=== PATIENT | female | born 1985 | race Caucasian/White ===

== ENCOUNTER → 2018-02-20 | Outpatient (CLI) | payer MEDICAID, OTHER ==
[~2018-02-20] MED LIST: ALBU1AER INH; BENZ100 PO; DOXY100T PO; Z.0.NO CURRENT MEDS
== END ==
LOC: HPND 07:46
PROVIDERS: ATTEND Obstetrics & Gynecology
DX: O99.212 Obesity complicating pregnancy, second trimester (principal); E66.01 Morbid (severe) obesity due to excess calories; Z68.41 Body mass index [BMI] 40.0-44.9, adult; O35.1XX0 Maternal care for (suspected) chromosomal abnormality in fetus, not applicable or unspecified; O09.32 Supervision of pregnancy with insufficient antenatal care, second trimester; O44.22 Partial placenta previa NOS or without hemorrhage, second trimester
CPT/HCPCS: 76811

== ENCOUNTER → 2018-04-04 | Outpatient (CLI) | payer MEDICAID | LOC: HPND 12:45 | PROVIDERS: ATTEND Obstetrics & Gynecology | DX: O99.212 Obesity complicating pregnancy, second trimester (principal); E66.01 Morbid (severe) obesity due to excess calories; Z68.41 Body mass index [BMI] 40.0-44.9, adult; O35.8XX0 Maternal care for other (suspected) fetal abnormality and damage, not applicable or unspecified | CPT/HCPCS: 76816 ==

== ENCOUNTER 2018-07-24 15:59 | Inpatient (IN) ==
[2018-07-24] MEDS ORDERED: fentaNYL Citrate Inj 100 MCG/2 ML Ampul IV.PUSH PRN ×2 (17:19)
[2018-07-24] MEDS ORDERED: Sod Chloride 0.9% Inj 1,000 ML IV.CONT PRN (17:19)
[2018-07-24] MEDS ORDERED: Oxytocin 30 Units/500ml Premix 30 UNITS/500 ML BAG IV.SIG ONE (17:19)
[2018-07-24] MEDS ORDERED: Naloxone Inj 0.4 MG/ML Vial IV.PUSH PRN (17:19)
[2018-07-24] MEDS ORDERED: Sodium Chlor 0.9% Inj 500 ML IV.SIG PRN (17:19)
--- NOTE | 2018-07-24 17:25 | P.HPOB ---
History of Present Illness Primary Care Physician: NOT REQUIRED History of Present Illness: Patient is a 33-year-old G 3 P 2 at 40/4 who presents today for induction of labor. Multiple ECF is seen by OB diagnostics, patient also post dates. Recommended delivery. She states she has had normal movement. Denies nausea, vomiting, fever, chills, abdominal pain, shortness of breath, changes in vision, headache, lightheadedness, dizziness, dysuria, hematuria, frequency, change in urine color/smell, change in bowel habits, large gushes of fluid. Notes some minor whitish discharge, normal for . No bloody discharge, abnormally colored or malodorous discharge. No other complaints today. History Medical: Denies Surgical cholecystectomy 2009 OB: 2 previous late term deliveries, no other complications, denies Occasions during the spring C Family Mother: Denies medical problems Father: Hypertension Social EtOH: Denies Tobacco: Denies Drugs: Denies - Inpatient Certification I certify that the inpatient services were ordered in accordance with Medicare regulations governing the order. This includes certification that hospital inpatient services are reasonable and necessary and in the case of services not specified as inpatient-only under 42 CFR 419.22(n), that they are appropriately provided as inpatient services in accordance to with the 2-midnight benchmark under 43 CFR 412.3(e) Review of Systems Constitutional: Denies chills, Denies fever(s) Eyes: Denies blind spots, Denies blurry vision, Denies change in vision, Denies itchy eyes Ears, Nose, Mouth, and Throat: Denies bleeding gums, Denies sore throat Cardiovascular: Denies chest pain, Denies shortness of breath Respiratory: Denies cough, Denies snoring, Denies stridor, Denies wheezing Gastrointestinal: Reports cramping, Denies constipation, Denies nausea, Denies vomiting Genitourinary: Denies abnormal vaginal bleeding, Denies pelvic pain, Denies urinary urgency, Denies vaginal odor Musculoskeletal: Denies numbness, Denies stiffness, Denies tingling Skin/Breast: Denies redness, Denies rash Neurologic: Denies abnormal movements, Denies confusion, Denies dizziness, Denies numbness, Denies convulsions Psychiatric: Denies anxiety, Denies confusion, Denies depression Endocrine: Denies cold intolerance, Denies excessive sweating, Denies flushing Hematologic/Lymphatic: Denies easy bleeding, Denies easy bruising PMFSH - History History Provided By: Patient, Family Member - Medical History Medical History: Medical History (Last Reviewed 05/30/18 @ 22:29 by Ambika Barone) Patient denies medical problems - Surgical History Surgical History: Surgical History (Last Updated 05/30/18 @ 21:37 by Scotty Hayden RN) Hx of cholecystectomy - Tobacco History Smoking Status: Never smoker - Alcohol History How Often Do You Have a Drink Containing Alcohol: Never - Substance Use History Substance History: No History of Abuse - Immunization History Hx Influenza Vaccine This Season: No Medications and Allergies Allergies Allergy/AdvReac Type Severity Reaction Status Date / Time penicillin G Allergy Severe Hives Verified 05/30/18 21:35 Home Medications Medication Instructions Recorded Confirmed Type [id number] fumarate-FA 1 tab PO DAILY 07/24/18 07/24/18 History [] Exam Vital signs: Vital Signs 07/24/18 16:15 Temperature 98.9 F Pulse Rate 125 H Respiratory Rate 18 Blood Pressure 128/82 Intake & Output 07/23/18 07/24/18 07/24/18 18:59 06:59 18:59 Weight 104 kg Other: Weight On Admission 104 kg Narrative: GENERAL: Well-nourished, well-developed patient. SKIN: Warm and dry. HEAD: Normocephalic and atraumatic. EYES: No scleral icterus. No injection or drainage. ENT: No nasal drainage noted. Mucous membranes pink. Airway patent. NECK: Supple, trachea midline. No JVD. CARDIOVASCULAR: Regular rate and rhythm without murmurs, gallops, or rubs. RESPIRATORY: Breath sounds equal bilaterally. No accessory muscle use. ABDOMEN/GI: Abdomen soft, non-tender, bowel sounds present, no rebound, no guarding GENITOURINARY: Cervix: Posterior Dilatation: 3 Effacement: 70 Station: -2 Membranes: Intact Uterine Contractions: Rare FHT's: Category: 1 Baseline: 140 Reactive: Yes Variability: Moderate Decels: None EXTREMITIES: No cyanosis or edema. BACK: Nontender without obvious deformity. No CVA tenderness. NEUROLOGICAL: Awake and alert. Motor and sensory grossly within normal limits. Five out of 5 muscle strength in all muscle groups. Normal speech. Caprini VTE Risk Assessment Caprini VTE Risk Assessment: No/Low Risk (score <= 1) Caprini Risk Assessment Model: Point Value = 1 Point Value = 2 Point Value = 3 Point Value = 5 Age 41-60 Minor surgery BMI > 25 kg/m2 Swollen legs Varicose veins or History of unexplained or recurrent spontaneous Oral contraceptives or hormone replacement Sepsis (< 1 month) Serious lung disease, including pneumonia (< 1 month) Abnormal pulmonary function Acute myocardial infarction Congestive heart failure (< 1 month) History of inflammatory bowel disease Medical patient at bed rest Age 61-74 Arthroscopic surgery Major open surgery (> 45 min) Laparoscopic surgery (> 45 min) Malignancy Confined to bed (> 72 hours) Immobilizing plaster cast Central venous access Age >= 75 History of VTE Family history of VTE Factor V Leiden Prothrombin [id number] Lupus anticoagulant Anticardiolipin antibodies Elevated serum homocysteine Heparin-induced thrombocytopenia Other congenital or acquired thrombophilia Stroke (< 1 month) Elective arthroplasty Hip, pelvis, or leg fracture Acute spinal cord injury (< 1 month) Prophylaxis Regimen: Total Risk Factor Score Risk Level Prophylaxis Regimen 0-1 Low Early ambulation 2 Moderate Order ONE of the following: *Sequential Compression Device (SCD) *Heparin 5000 units SQ BID 3-4 Higher Order ONE of the following medications: *Heparin 5000 units SQ TID *Enoxaparin/Lovenox 40 mg SQ daily (WT < 150 kg, CrCl > 30 mL/min) *Enoxaparin/Lovenox 30 mg SQ daily (WT < 150 kg, CrCl > 10-29 mL/min) *Enoxaparin/Lovenox 30 mg SQ BID (WT < 150 kg, CrCl > 30 mL/min) AND/OR *Sequential Compression Device (SCD) 5 or more Highest Order ONE of the following medications: *Heparin 5000 units SQ TID (Preferred with Epidurals) *Enoxaparin/Lovenox 40 mg SQ daily (WT < 150 kg, CrCl > 30 mL/min) *Enoxaparin/Lovenox 30 mg SQ daily (WT < 150 kg, CrCl > 10-29 mL/min) *Enoxaparin/Lovenox 30 mg SQ BID (WT < 150 kg, CrCl > 30 mL/min) AND *Sequential Compression Device (SCD) Assessment and Plan - Diagnosis (1) 40 weeks gestation of Code(s): Z3A.40 - 40 weeks gestation of Status: Acute (2) cardiac echogenic focus Code(s): O35.8XX0 - Maternal care for other (suspected) abnormality and damage, not applicable or unspecified Status: Acute (3) Post-dates Code(s): O48.0 - Post-term Status: Acute - Plan 33-year-old at 40/4 presenting today for induction of labor due to echogenic foci and post dates. -Admission for induction of labor -Pitocin 11/09/29 -FHT category 1, reassuring -Expectant management -GBS negative D/W Dr. Palomares
[2018-07-24] MEDS ORDERED: Citric Acid/Sodium Citrate Liq 30 ML UDC PO SCH (17:30)
[2018-07-24 17:50] LABS: Baso % (Auto) 0.4 % (0.0-2.0); Eos % (Auto) 0.2 % (0.0-4.0); Hematocrit 28.9 % (35.0-46.0); Hemoglobin 9.7 gm/dL (11.6-15.3); Lymph # (Auto) 1.4 th/mm3 (1.0-4.8); Lymph % (Auto) 12.4 % (9.0-44.0); Mean Corpuscular HGB Conc 33.7 % (32.0-36.0); Mean Corpuscular Hemoglobin 29.1 pg (27.0-34.0); Mean Corpuscular Volume 86.5 fL (80.0-100.0); Mean Platelet Volume 8.8 fL (7.0-11.0); Mono # (Auto) 0.5 th/mm3 (0.0-0.9); Mono % (Auto) 4.8 % (0.0-8.0); Neut # (Auto) 8.9 th/mm3 (1.8-7.7); Neut % (Auto) 82.2 % (16.0-70.0); Platelet Count 217 th/mm3 (150-450); Red Blood Count 3.34 mil/mm3 (4.00-5.30); Red Cell Distribution Width 17.4 % (11.6-17.2); White Blood Count 10.9 th/mm3 (4.0-11.0)
[2018-07-24] MEDS ORDERED: Oxytocin 30 Units/500ml Premix 30 UNITS/500 ML BAG IV.CONT PRN (17:52)
[2018-07-24 17:59] LABS: Amphetamine Urine With Conf Neg (Neg); Benzodiazepine Urine With Conf Neg (Neg)
[2018-07-24 18:03] LABS: Bacteria,Urine Rare /hpf; Bilirubin,Urine Negative (Negative); Clarity,Urine Hazy (Clear); Color,Urine Yellow (Yellw/Straw); Glucose,Urine (UA) Negative (Negative); Leukocyte Esterase,Urine Small (Negative); Mucus,Urine Few /lpf (Occasional); Nitrite,Urine Negative (Negative); Specific Gravity,Urine 1.009 (1.002-1.035); Squamous Epithelial Cell,Urine 10 /hpf (0-5)
[2018-07-24] MEDS ORDERED: Acetaminophen 325 MG Tablet PO ONE (19:45)
--- NOTE | 2018-07-24 20:22 | P.OBLABOR ---
Subjective Interval history: Patient seen. She is considering an epidural. No complaints at this time. Objective Vital Signs: Vital Signs - 8 hr 07/24/18 16:15 07/24/18 18:04 07/24/18 18:05 Temperature 98.9 F Pulse Rate 125 H 104 H Respiratory Rate 18 18 Blood Pressure 128/82 107/65 07/24/18 19:19 07/24/18 19:20 Temperature 97.7 F Pulse Rate 101 H Respiratory Rate 16 Blood Pressure 111/73 Objective: Pelvic Exam: Cervix: midline Dilatation: 3cm Effacement: 70 Station: -2 Presentation: vertex Membranes: intact Uterine Contractions: q2-4m FHT's: Category: 1 Baseline: 130s-140s Reactive: yes Variability: moderate Decels: none Assessment and Plan - Diagnosis (1) 40 weeks gestation of Code(s): Z3A.40 - 40 weeks gestation of Status: Acute (2) cardiac echogenic focus Code(s): O35.8XX0 - Maternal care for other (suspected) abnormality and damage, not applicable or unspecified Status: Acute (3) Post-dates Code(s): O48.0 - Post-term Status: Acute - Plan 33-year-old at 40/4 presenting today for induction of labor due to echogenic foci and post dates. -Admission for induction of labor -Pitocin 11/09/29 -FHT category 1, reassuring -Cervix /-2 -Expectant management -GBS negative D/W Dr. Palomares
[2018-07-24] MEDS ORDERED: Lidocaine 1% Inj 50 ML Vial ONE (20:29)
[2018-07-24] MEDS ORDERED: fentaNYL 2MCG-Bupiv 0.125% Epi 150 ML EPIDURAL ONE (20:35)
[2018-07-24] MEDS ORDERED: Lidocaine PF 1% Inj 5 ML Vial ONE (20:43)
[2018-07-24] MEDS ORDERED: Lidocaaine 1.5%/Epinephrine 1:200,000 PF Inj 5 ML Amp ONE (20:43)
[2018-07-24] MEDS ORDERED: fentaNYL Citrate Inj 100 MCG/2 ML Ampul EPIDURAL ONE (21:29)
[2018-07-24] MEDS ORDERED: fentaNYL 2MCG-Bupiv 0.125% Epi 150 ML EPIDURAL PRN (21:29)
--- NOTE | 2018-07-24 22:36 | P.OBLABOR ---
Subjective Interval history: Ms Norton was re-examined. She is feeling much more comfortable after having the epidural placed. She does report diffuse pruritus. Objective Vital Signs: Vital Signs - 8 hr 07/24/18 16:15 07/24/18 18:04 07/24/18 18:05 Temperature 98.9 F Pulse Rate 125 H 104 H Respiratory Rate 18 18 Blood Pressure 128/82 107/65 07/24/18 19:19 07/24/18 19:20 07/24/18 21:05 Temperature 97.7 F Pulse Rate 101 H 117 H Respiratory Rate 16 20 Blood Pressure 111/73 119/66 07/24/18 21:15 07/24/18 21:20 07/24/18 21:30 Temperature Pulse Rate 108 H 105 H 116 H Respiratory Rate Blood Pressure 118/83 115/61 99/64 L 07/24/18 21:40 07/24/18 21:42 07/24/18 21:45 Temperature Pulse Rate 98 H 94 H 92 H Respiratory Rate 16 Blood Pressure 97/50 L 108/54 L 07/24/18 22:01 07/24/18 22:14 07/24/18 22:15 Temperature Pulse Rate 95 H 106 H 112 H Respiratory Rate 18 Blood Pressure 84/43 L 84/58 L 101/62 Objective: Pelvic Exam: Cervix: Posterior Dilatation: 4 Effacement: 70 Station: -2 Presentation: Vertex Membranes: Ruptured Uterine Contractions: Consistent, every 3-5 minutes FHT's: Category: 1 Baseline: 150 Reactive: Yes Variability: Moderate Decels: None Artificial Rupture of Membrane: Yes (Clear fluid) Assessment and Plan - Diagnosis (1) 40 weeks gestation of Code(s): Z3A.40 - 40 weeks gestation of Status: Acute (2) cardiac echogenic focus Code(s): O35.8XX0 - Maternal care for other (suspected) abnormality and damage, not applicable or unspecified Status: Acute (3) Post-dates Code(s): O48.0 - Post-term Status: Acute - Plan 33-year-old at 40/4 presenting today for induction of labor due to echogenic foci and post dates. -Admission for induction of labor -Pitocin 11/09/29 -FHT category 1, reassuring -Cervix /-2 -Expectant management -GBS negative -AROM performed by Dr. Sargent -Hydroxyzine 25 mg IM for pruritus D/W Dr. Palomares
[2018-07-25] MEDS ORDERED: Acetaminophen 325 MG Tablet PO PRN (03:36)
[2018-07-25] MEDS ORDERED: Oxytocin 30 Units/500ml Premix 30 UNITS/500 ML BAG IV.CONT PRN (03:36)
[2018-07-25] MEDS ORDERED: Zolpidem Tartrate 5 MG Tablet PO PRN (03:36)
[2018-07-25] MEDS ORDERED: Naloxone Inj 0.4 MG/ML Vial IV.PUSH PRN (03:36)
[2018-07-25] MEDS ORDERED: Bisacodyl 10 MG Supp RECTAL PRN (03:36)
--- NOTE | 2018-07-25 03:39 | P.OBDELI ---
Weeks Gestation: 40 Artificial Rupture of Membrane: Yes Anesthesia: Epidural Episiotomy: none Vaginal Delivery: Normal Presentation: Occiput anterior Nuchal Cord: None Delayed Cord Clamping (45 sec): Yes Laceration: 2 deg Repair: Chromic running Estimated blood loss (mL): 150 : Male Male A Delivery Date: 07/25/18 Delivery Time: 03:11 score (1 min): 9 score (5 min): 9
[2018-07-25] MEDS: Benzocaine 20% Top Spray 60 ML Can TOPICAL PRN (08:10)
[2018-07-25] MEDS: Senna/Docusate Sodium 8.6/50 MG Tablet PO SCH ×2 (08:10→21:16)
[2018-07-25] MEDS: Witch Hazel 50%/Glyderin 12.5% 40 Pad Jar RECTAL PRN (08:11)
[2018-07-25] MEDS ORDERED: Diphtheria/Tetanus/Pertussis Vaccine Inj 0.5 ML Syringe IM ONE (16:00)
[2018-07-25] MEDS ORDERED: Measles/Mumps/Rubella Vaccine Inj 0.5 ML Vial SQ ONE (16:00)
[2018-07-25 22:14] VITALS: RESP 18
[2018-07-26 07:20] VITALS: BP 94/59; PULSE 84; TEMP 97.7
[2018-07-26] MEDS: Senna/Docusate Sodium 8.6/50 MG Tablet PO SCH (08:53)
--- NOTE | 2018-07-26 10:52 | P.PNOB ---
Subjective Post day: 2 Interval history: Pt seen and examined this morning bedside. No N/V. Ambulating and voiding without difficulty. Denies any CP/SOB/dizzyness. pain well-controlled on current medications. No calf tenderness. Passing gas. Objective Vital Signs/I&O: Vital Signs 07/25/18 21:00 07/26/18 07:00 Temperature 98.2 F 97.7 F Pulse Rate 70 84 Respiratory Rate 18 18 Blood Pressure 104/70 94/59 L Result Diagrams: 07/24/18 16:30 Objective Remarks: GENERAL: Well-nourished, well-developed patient. CARDIOVASCULAR: Regular rate and rhythm without murmurs, gallops, or rubs. RESPIRATORY: Breath sounds equal bilaterally. No accessory muscle use. ABDOMEN/GI: Abdomen soft, non-tender. Fundus: Firm, non-tender at umbilicus. GENITOURINARY: Light to moderate bleeding. EXTREMITIES: No cyanosis or edema, non-tender, without signs of DVT. Medications and IVs: Active Medications Acetaminophen (Tylenol) 650 mg PO Q4H PRN PRN Reason: PAIN SCALE 1 TO 2 Last Admin: 07/25/18 13:40 Dose: 650 mg Al Hydroxide/Mg Hydroxide (Milk Of Magnesia Liq) 30 ml PO Q12H PRN PRN Reason: Mild Constipation Benzocaine (Americaine 20% Top Vinegar [place]) 1 spray TOPICAL Q4H PRN PRN Reason: For Perineum Discomfort Last Admin: 07/25/18 08:10 Dose: 1 spray Bisacodyl (Dulcolax Supp) 10 mg RECTAL DAILY PRN PRN Reason: SEVERE CONSITIPATION Oxytocin (Pitocin 30 Units/Ns 500 Ml Premix) 30 units in 500 mls @ 0 mls/hr IV.CONT TITRATE PRN; Protocol PRN Reason: For induction of labor Last Admin: 07/24/18 18:03 Dose: 2 milliunit/min, 2 mls/hr Fentanyl/Bupivacaine/Sodium Chlor (Fentanyl 2 Mcg-Bupiv 0.125% Epi) 150 mls @ 12 mls/hr EPIDURAL PRN PRN PRN Reason: for Labor Pain Last Admin: 07/24/18 21:49 Dose: 12 mls/hr Oxytocin (Pitocin 30 Units/Ns 500 Ml Premix) 30 units in 500 mls @ 100 mls/hr IV.CONT UNSCH PRN PRN Reason: Heavy bleeding Ibuprofen (Motrin) 800 mg PO Q8H PRN PRN Reason: For Cramping Last Admin: 07/26/18 08:53 Dose: 800 mg Lactulose (Lactulose Liq) 30 ml PO DAILY PRN PRN Reason: SEVERE CONSITIPATION Naloxone HCl (Narcan Inj) 0.1 mg IV.PUSH Q2M PRN PRN Reason: for opiate reversal Ondansetron HCl (Zofran Inj) 4 mg IV.PUSH Q6H PRN PRN Reason: NAUSEA OR VOMITING Ondansetron HCl (Zofran Odt) 4 mg PO Q6H PRN PRN Reason: NAUSEA OR VOMITING Oxycodone/Acetaminophen (Percocet 5/325 Mg) 1 tab PO Q4H PRN PRN Reason: Acute Pain 1-10 Last Admin: 07/26/18 08:53 Dose: 1 tab Senna/Docusate Sodium (Dominga-Colace) 1 tab PO BID [facility] Last Admin: 07/26/18 08:53 Dose: 1 tab Sennosides (Senokot) 17.2 mg PO Q12H PRN PRN Reason: Moderate Constipation Sodium Chloride (Ns Flush) 2 ml IV.FLUSH BID [facility] Last Admin: 07/26/18 08:54 Dose: Not Given Sodium Chloride (Ns Flush) 2 ml IV.FLUSH PRN PRN PRN Reason: FLUSH AFTER USING IV ACCESS Witch Sarina/Glycerin (Tucks Pads) 1 applicatio RECTAL QID PRN PRN Reason: HEMORRHOIDS Last Admin: 07/25/18 08:11 Dose: 1 applicatio Zolpidem Tartrate (Ambien) 5 mg PO HS PRN PRN Reason: SLEEP Assessment and Plan - Plan 33-year-old at 40/4 , PPD#1 - Continue routine ppm care - Contraception: discussed, will cont to consider - admission labs WNL - OK to d/c after 24hrs
[2018-07-26] MEDS: Benzocaine 20% Top Spray 60 ML Can TOPICAL PRN (16:05)
[2018-07-26] MEDS: Witch Hazel 50%/Glyderin 12.5% 40 Pad Jar RECTAL PRN (16:05)
== END 2018-07-26 18:29 | disposition home or self-care (01) ==
LOC: H2E 15:59 → H1EA 07-25 05:40
PROVIDERS: ADMIT Obstetrics & Gynecology; ATTEND Obstetrics & Gynecology